=== PATIENT | female | born 1965 | race African-American/Black ===

== ENCOUNTER 2017-12-28 08:48 | Observation (INO) ==
[2017-12-28 09:57] LABS: Basophils % 0.9 % (0.0-0.8); Eosinophils # 0.1 10*3/uL (0.0-0.87); Eosinophils % 2.2 % (0.00-10.9); Hematocrit 41.3 VOL% (35.7-47.0); Hemoglobin 13.4 GM/DL (12.0-16.0); Immature Granulocytes % 0.2 %; Immature Granulocytes Absolute 0.01 #; Lymphocytes # 1.2 10*3/uL (1.4-4.0); Lymphocytes % 25.4 % (21.3-54.2); Mean Corpuscular HGB Conc 32.4 GM/DL (32-36); Mean Corpuscular Hemoglobin 28 PG (27-34); Mean Corpuscular Volume 86.9 FL (87-102); Mean Platelet Volume 9.9 FL (9.6-12.0); Monocytes # 0.3 10*3/uL (0.11-0.8); Monocytes % 6.8 % (1.7-12.7); Neutrophils % 64.5 % (38.7-73.9); Platelet Count 260 T/CUMM (130-400); Red Blood Count 4.75 MC/CUMM (3.8-5.5); Red Cell Distribution Width 13.4 % (9.3-17.3); White Blood Count 4.6 T/CUMM (4-12)
[2017-12-28 10:05] LABS: Barbiturates Screen,Urine Negative (Negative); Benzodiazepines Screen,Urine Negative (Negative); Cannabinoid Screen,Urine Negative (Negative); INR 1.1; Opiate Screen,Urine Negative (Negative); PT Patient Result 11.1 SECS; Partial Thromboplastin Time 25.4 SECS (0-40); Phencyclidine Screen,Urine Negative (Negative)
[2017-12-28 10:20] LABS: Apearance,Urine CLEAR (Clear); Bacteria,Urine Occasional /HPF (Few); Bilirubin,Urine Negative (Negative); Blood, Urine Negative (Negative); Glucose,Urine (UA) Negative (Negative); Ketones,Urine Negative (Negative); Nitrite,Urine Negative (Negative); Protein,Urine Negative; RBC,Urine 1 /HPF (0-4); Squamous Epithelial Cell,Urine Occasional /HPF (0-10); Urine Color Colorless (Yellow); Urine Specific Gravity 1.002 (1.001-1.035); Urine Urobilinogen < 2.0 EU/DL (0.2-1.0); WBC,Urine 1 /HPF (0-6)
[2017-12-28 10:31] LABS: Calcium 9.6 MG/DL (8.5-10.1); Free T4 (Free Thyroxine) 1.02 NG/DL (0.76-1.46); Osmolality,Calculated 280.4 MOS/KG (273-304); Potassium 3.4 MMOL/L (3.5-5.1); Thyroid Stimulating Hormone 0.766 uIU/ml (0.358-3.74)
[2017-12-28] MEDS ORDERED: PROMETHAZINE 25 MG/1 ML VIAL IM PRN (10:41)
[2017-12-28] MEDS ORDERED: ACETAMINOPHEN 325 MG TABLET PO PRN (10:41)
[2017-12-28] MEDS ORDERED: ONDANSETRON 4 MG/2 ML VIAL IV PRN (10:41)
[2017-12-28] MEDS ORDERED: PANTOPRAZOLE 40 MG TABLET PO PRN (12:11)
[2017-12-28] MEDS: SODIUM CHLORIDE 0.9% 1,000 ML IV SCH (12:51)
[2017-12-28] MEDS: ENOXAPARIN 40 MG/0.4 ML SYRINGE SUBCUT SCH (16:10)
[2017-12-28] MEDS ORDERED: DIVALPROEX 500 MG TABLET PO SCH (21:00)
[2017-12-29 05:26] LABS: Basophils % 0.7 % (0.0-0.8); Eosinophils # 0.2 10*3/uL (0.0-0.87); Eosinophils % 3.9 % (0.00-10.9); Hematocrit 34.8 VOL% (35.7-47.0); Hemoglobin 11.6 GM/DL (12.0-16.0); Immature Granulocytes % 0.2 %; Immature Granulocytes Absolute 0.01 #; Lymphocytes # 2.3 10*3/uL (1.4-4.0); Lymphocytes % 57.4 % (21.3-54.2); Mean Corpuscular HGB Conc 33.3 GM/DL (32-36); Mean Corpuscular Hemoglobin 28 PG (27-34); Mean Corpuscular Volume 84.7 FL (87-102); Mean Platelet Volume 10.5 FL (9.6-12.0); Monocytes # 0.4 10*3/uL (0.11-0.8); Monocytes % 9.8 % (1.7-12.7); Neutrophils # 1.1 10*3/uL (1.4-7.4); Platelet Count 228 T/CUMM (130-400); Red Blood Count 4.11 MC/CUMM (3.8-5.5); Red Cell Distribution Width 13.7 % (9.3-17.3); White Blood Count 4.1 T/CUMM (4-12)
[2017-12-29 05:46] LABS: Eosinophils 2 % (0-10); Hypochromasia 1+; Lymphocytes 54 % (20-55); Platelet Estimate Adequate; Segmented Neutrophils 35 % (50-85); Total Cells Counted 100
[2017-12-29 05:48] LABS: Bilirubin,Total 0.8 MG/DL (0.2-1.0); Osmolality,Calculated 282.1 MOS/KG (273-304); Potassium 3.1 MMOL/L (3.5-5.1); Risk Ratio 2.82; Total Protein 7.5 G/DL (6.4-8.3); VLDL CHOLESTEROL 12.4 MG/DL
[2017-12-29] MEDS: SODIUM CHLORIDE 0.9% 1,000 ML IV SCH (06:33)
[2017-12-29] MEDS ORDERED: LINACLOTIDE 145 MCG CAPSULE PO SCH (07:30)
[2017-12-29 08:12] VITALS: BP 109/58
[2017-12-29] MEDS: CHLORTHALIDONE 25 MG TABLET PO SCH ×2 (08:54→10:22)
[2017-12-29] MEDS: CITALOPRAM 20 MG TABLET PO SCH ×2 (08:54→10:23)
[2017-12-29] MEDS: amLODIPine 5 MG TABLET PO SCH ×2 (08:54→10:22)
[2017-12-29] MEDS: ASPIRIN EC 81 MG TABLET PO SCH ×2 (08:54→10:22)
[2017-12-29] MEDS: DIVALPROEX 250 MG TABLET PO SCH ×2 (08:54→10:23)
[2017-12-29] MEDS: CHOLECALCIFEROL 1,000 UNIT TABLET PO SCH ×2 (08:54→10:22)
[2017-12-29] MEDS: POTASSIUM CHLORIDE 20 MEQ TABLET PO SCH ×2 (08:54→10:23)
[2017-12-29] MEDS ORDERED: POTASSIUM CHLORIDE 20 MEQ TABLET PO ONE (08:58)
[2017-12-29] MEDS ORDERED: ATENOLOL 50 MG TABLET PO SCH (09:00)
[2017-12-29] MEDS: ENOXAPARIN 40 MG/0.4 ML SYRINGE SUBCUT SCH (11:51)
== END 2017-12-29 12:23 | disposition home or self-care (01) ==
LOC: N.EDINP 08:48 → N.ED 08:48 → SUATTDRO 10:41 → N.4E 11:09
PROVIDERS: ADMIT Hospitalist; ATTEND Internal Medicine